=== PATIENT | female | born 1995 | race Caucasian/White ===

== ENCOUNTER 2016-10-24 08:13 | Emergency (ER) | payer BC ==
[2016-10-24 08:30] VITALS: BP 107/61
--- NOTE | 2016-10-24 09:04 | RAD ---
HISTORY: Right ankle tenderness and swelling COMPARISONS: None VIEWS: 3, Frontal, lateral, and oblique views of the right ankle FINDINGS: BONE DENSITY: Normal. BONES: There is no displaced fracture. JOINTS: There is no arthropathy. ALIGNMENT: There is no dislocation. SOFT TISSUES: There is circumferential soft tissue swelling OTHER FINDINGS: None. IMPRESSION: SOFT TISSUE SWELLING. NO ACUTE OSSEOUS INJURY. IF SYMPTOMS PERSIST, RECOMMEND REPEAT IMAGING.
--- NOTE | 2016-11-25 18:59 | UC ---
Lower Extremity/Ankle HPI - HPI Summary HPI Summary: pt p/w rt ankle pain and inability to bear wt after falling on the stairs yesterday. - History of Current Complaint Chief Complaint: UCLowerExtremity Stated Complaint: RT ANKLE INJURY Time Seen by Provider: 10/24/16 08:42 Hx Obtained From: Patient Hx Last Menstrual Period: 10/16/16 ?: No Onset/Duration: Sudden Onset, Lasting Hours, Still Present Severity Initially: Moderate Severity Currently: Moderate Pain Intensity: 4 Pain Scale Used: 0-10 Numeric Aggravating Factor(s): Standing, Ambulation Alleviating Factor(s): Rest, Elevation Able to Bear Weight: No - Allergies/Home Medications Allergies/Adverse Reactions: Allergies Allergy/AdvReac Type Severity Reaction Status Date / Time Sulfamethoxazole Allergy Rash Verified 10/24/16 08:21 w/Trimethoprim [From Bactrim] Home Medications: Home Medications Albuterol HFA INHALER* [Ventolin HFA Inhaler*] 1 - 2 puff INH Q4H PRN 10/24/16 [ History Confirmed 10/24/16] Cyclobenzaprine (NF) [Cyclobenzaprine 5 MG (NF)] 5 mg PO ONCE PRN 10/24/16 [ History Confirmed 10/24/16] Latanoprost 0.005% OPTH (NF) [Xalatan 0.005% OPTH (NF)] 1 drop BOTH EYES DAILY 10/24/16 [History Confirmed 10/24/16] Norgestimate-Ethinyl Estradiol [Tri-Sprintec 0.18/0.215/0.25 mg-35 Mcg] 1 tab PO DAILY 10/24/16 [History Confirmed 10/24/16] PMH/Surg Hx/FS Hx/Imm Hx - Additional Past Medical History Additional PMH: glaucoma Respiratory History: Asthma GI/ History: Other Other GI/ History: ibs - Surgical History Surgical History: Yes Surgery Procedure, Year, and Place: wisdom teeth - Social History Alcohol Use: None Substance Use Type: None Smoking Status (MU): Never Smoked Tobacco Review of Systems Constitutional: Negative Skin: Negative Respiratory: Negative Cardiovascular: Negative Motor: Decreased ROM Neurovascular: Negative Musculoskeletal: Arthralgia, Edema Neurological: Negative All Other Systems Reviewed And Are Negative: Yes Physical Exam Triage Information Reviewed: Yes Appearance: Well-Appearing, No Pain Distress, Well-Nourished Vital Signs: Initial Vital Signs Temp 99.8 F 10/24/16 08:25 Pulse 90 10/24/16 08:25 Resp 14 10/24/16 08:25 BP 107/61 10/24/16 08:25 Pulse Ox 99 10/24/16 08:25 Vital Signs Reviewed: Yes Eyes: Positive: Conjunctiva Clear. Negative: Discharge ENT: Positive: Hearing grossly normal. Negative: Muffled/hoarse voice Neck: Positive: Supple Respiratory: Positive: Lungs clear, Normal breath sounds, No respiratory distress, No accessory muscle use Cardiovascular: Positive: RRR, No Murmur Musculoskeletal: Positive: Strength Intact, ROM Limited @ - due to pain, Edema @ - rt ankle lat and med, Other: - tender swollen lat/med maleolus. no tenderness at base of 5th metatarsal Neurological: Positive: Alert, Muscle Tone Normal Psychological: Positive: Age Appropriate Behavior Skin Exam: Normal Lower Extremity Course/Dx - Differential Dx/Diagnosis Differential Diagnosis/HQI/PQRI: Fracture (Closed), Sprain, Strain Provider Diagnoses: ankle sprain Discharge - Discharge Plan Condition: Stable Disposition: HOME Patient Education Materials: Ankle Sprain (ED), Crutch Instructions (ED), Ankle Stirrup Splint (ED) Forms: *Work Release Referrals: Non Staff,Doctor [Primary Care Provider] - Additional Instructions: IF YOU DO NOT IMPROVE IN 1-2 WEEKS, YOU WANT TO REQUEST A REFERRAL TO PHYSICAL THERAPY FROM YOUR PCP. IF YOUR ANKLE REMAINS PROBLEMATIC, YOU WOULD BENEFIT FROM BODY WORK SUCH A CHIROPRACTIC, MASSAGE, ACCUPUNCTURE OR OSTEOPATHY.
== END 2016-10-24 10:17 | disposition home or self-care (01) ==
LOC: UCCORT 08:13
DX: S93.401A Sprain of unspecified ligament of right ankle, initial encounter (principal); W10.9XXA Fall (on) (from) unspecified stairs and steps, initial encounter; Y93.9 Activity, unspecified; Y92.9 Unspecified place or not applicable; H40.9 Unspecified glaucoma; J45.909 Unspecified asthma, uncomplicated; K58.9 Irritable bowel syndrome, unspecified; Z88.2 Allergy status to sulfonamides
CPT/HCPCS: 99203; G0463